=== PATIENT | female | born 1985 | race African-American/Black ===

== ENCOUNTER 2016-07-26 03:13 | Inpatient (IN) | payer OTHER ==
[~2016-07-26] VITALS: Ht 165.1 cm; Wt 127.0 kg
[2016-07-26] VITALS (27 sets, daily range): BP systolic 94–126; BP diastolic 53–89
[~2016-07-26 03:13] MED LIST: CEFUROXIME500 MG; COLACE100 MG PO; ENDOCET 5-3251 EACH PO; IBUPROFEN800 MG PO; ISONIAZID TP; KEFLEX500 MG PO; LEXAPRO10 MG PO; MOTRIN800 MG; NOHOMEMEDS; PERCOCET 5/31 TABLET PO; PRENATAL CAPLE1 EACH PO; PRENATAL VITAM1 EAC3 PO; PROMETHAZINE HC25 MG PR; VITAMINS; ZANTAC150 MG PO; ZOFRAN ODT4 MG PO; ZOFRAN4 MG PO
[2016-07-26 10:11] LABS: HEMATOCRIT 33.7 % (36.0-46.0); MCH 25.3 PG (29.0-34.0); MCHC 30.9 G/DL (30.0-36.0); PLATELET COUNT 245 K/uL (156-360); RBC DIS.WIDTH-CV 18.4 % (11.8-14.6); RBC DIS.WIDTH-SD 54.6 % (39-53); RED BLOOD COUNT 4.11 M/uL (3.80-5.20); WHITE BLOOD COUNT 7.2 K/uL (4.1-10.2)
[2016-07-26 10:41] LABS: EOSINOPHIL (%) 1.4 % (0-5); EOSINOPHIL COUNT 0.1 K/uL (0-0.3); IMMATURE GRANULOCYTE (%) 0.4 % (0.0-0.7); MONOCYTE (%) 8.6 % (3-12); MONOCYTE COUNT 0.6 K/uL (0-0.8); NEUTROPHIL (%) 75.2 % (45-76); NEUTROPHIL COUNT 5.4 K/uL (1.8-6.4)
[2016-07-27] VITALS: BP 111/80
[2016-07-27 07:05] VITALS: BP 119/67
[2016-07-27 07:35] LABS: EOSINOPHIL COUNT 0.1 K/uL (0-0.3); HEMATOCRIT 30.8 % (36.0-46.0); IMMATURE GRANULOCYTE (%) 0.4 % (0.0-0.7); LYMPHOCYTE COUNT 1.9 K/uL (1.0-2.8); MCH 25.6 PG (29.0-34.0); MCHC 31.8 G/DL (30.0-36.0); MCV 80.4 FL (83-99); MEAN PLAT.VOLUME 10.2 uM^3 (9.5-12.4); MONOCYTE COUNT 0.7 K/uL (0-0.8); NEUTROPHIL (%) 74.2 % (45-76); NEUTROPHIL COUNT 7.9 K/uL (1.8-6.4); PLATELET COUNT 223 K/uL (156-360); RBC DIS.WIDTH-CV 18.4 % (11.8-14.6); RBC DIS.WIDTH-SD 53.5 % (39-53); RED BLOOD COUNT 3.83 M/uL (3.80-5.20)
[2016-07-27 07:38] LABS: WHITE BLOOD COUNT 10.6 K/uL (4.1-10.2)
[2016-07-27 14:45] VITALS: BP 107/57
[2016-07-27 22:40] VITALS: BP 122/74
[2016-07-28 06:50] VITALS: BP 107/61
== END 2016-07-28 12:35 | disposition home or self-care (01) | DRG 775 ==
LOC: LDRP-OP 03:13 → 2WEST 03:14 → LDRP-OP 14:46 → 2WEST 16:39 → LDRP-OP 08-26 23:30
PROVIDERS: Advanced Practice Midwife
PROC: 10907ZC Drainage of Amniotic Fluid, Therapeutic from Products of Conception, Via Natural or Artificial Opening (ICD-10-PCS; principal; 2016-07-26)
PROC: 00HU33Z Insertion of Infusion Device into Spinal Canal, Percutaneous Approach (ICD-10-PCS; principal; 2016-07-26)
PROC: 3E033VJ Introduction of Other Hormone into Peripheral Vein, Percutaneous Approach (ICD-10-PCS; principal; 2016-07-26)
PROC: 3E0R3CZ (ICD-10-PCS; principal; 2016-07-26)
PROC: 0HQ9XZZ Repair Perineum Skin, External Approach (ICD-10-PCS; principal; 2016-07-26)
PROC: 10E0XZZ Delivery of Products of Conception, External Approach (ICD-10-PCS; principal; 2016-07-26)
DX: O48.0 Post-term pregnancy (principal); O99.824 Streptococcus B carrier state complicating childbirth; O99.214 Obesity complicating childbirth; E66.01 Morbid (severe) obesity due to excess calories; Z68.41 Body mass index [BMI] 40.0-44.9, adult; O99.844 Bariatric surgery status complicating childbirth; O69.81X0 Labor and delivery complicated by cord around neck, without compression, not applicable or unspecified; O70.0 First degree perineal laceration during delivery; Z37.0 Single live birth; Z3A.40 40 weeks gestation of pregnancy; Z91.040 Latex allergy status
CPT/HCPCS: 85025; C1755; C1776; J2540; J3010; J7120

== ENCOUNTER 2017-10-20 09:08 | Emergency (ER) | payer OTHER ==
[~2017-10-20] VITALS: Ht 165.1 cm; Wt 124.5 kg
[2017-10-20 09:42] LABS: HEMATOCRIT 39.7 % (36.0-46.0); HEMOGLOBIN 12.6 G/DL (11.9-15.5); MCH 26.3 PG (29.0-34.0); MCHC 31.7 G/DL (30.0-36.0); MCV 82.9 FL (83-99); PLATELET COUNT 294 K/uL (156-360); RBC DIS.WIDTH-CV 16.6 % (11.8-14.6); RBC DIS.WIDTH-SD 49.9 % (39-53); RED BLOOD COUNT 4.79 M/uL (3.80-5.20); WHITE BLOOD COUNT 6.3 K/uL (4.1-10.2)
[2017-10-20 09:52] LABS: CHLORIDE 107 mEq/L (99-109); POTASSIUM 4.3 mEq/L (3.7-5.4); SODIUM 139 mEq/L (136-147)
[2017-10-20 09:53] LABS: GLUCOSE 90 mg/dL (70-99)
[2017-10-20 09:57] LABS: CREATININE 0.9 mg/dL (0.6-1.3); GFR ESTIMATE (CALCULATED) > 59 mL/min/
[2017-10-20 09:58] LABS: UREA NITROGEN (BUN) 9 mg/dL (9-23)
[2017-10-20 10:05] LABS: TROP-I INTERPRETATION NEGATIVE; TROPONIN-I < 0.01 ng/mL (0.0-0.30)
[2017-10-20 10:23] LABS: D-DIMER ELISA < 150.00 ng/mLDDU (<230)
[2017-10-20 12:08] LABS: TROP-I INTERPRETATION NEGATIVE; TROPONIN-I 0.01 ng/mL (0.0-0.30)
[2017-10-20] MEDS ORDERED: MOTRIN800 MG PO (12:40)
[2017-10-20 12:56] VITALS: BP 110/65
== END 2017-10-20 12:58 | disposition home or self-care (01) ==
LOC: EME 09:08
PROVIDERS: Emergency Medicine
DX: R07.89 Other chest pain (principal); Z87.19 Personal history of other diseases of the digestive system; Z90.49 Acquired absence of other specified parts of digestive tract; Z98.84 Bariatric surgery status; Z97.5 Presence of (intrauterine) contraceptive device; Z91.040 Latex allergy status
CPT/HCPCS: 71046; 80048; 84484; 85027; 85379; 93005; 99281; 99285